=== PATIENT | male | born 1945 | race Caucasian/White ===

== ENCOUNTER 2019-10-16 13:05 | Inpatient (IN) | payer MEDICARE, MEDICAID ==
[~2019-10-16] VITALS: Ht 160 cm; Wt 63.5 kg
[2019-10-16 14:47] LABS: BASOPHILS % 0.6 % (0.0-2.0); EOSINOPHILS % 4.7 % (0.0-5.0); HEMATOCRIT. 43.2 % (42.0-52.0); HEMOGLOBIN. 14.8 g/dL (14.0-18.0); LYMPHOCYTES % 18.4 % (20.0-50.0); MEAN CORPUSCULAR HEMOGLOBIN 33.9 pg (28.0-32.0); MEAN CORPUSCULAR VOLUME 99.3 fL (80.0-94.0); MEAN PLATELET VOLUME 8.4 fl (7.4-10.4); MONOCYTES % 8.7 % (2.0-8.0); NEUTROPHILS % 67.6 % (40.0-76.0); PLATELET 186 x1000/uL (130-400); RED BLOOD CELL COUNT 4.35 mill/uL (4.7-6.1); RED CELL DISTRIBUTION WIDTH 13.2 % (11.6-14.6)
[2019-10-16 14:49] LABS: CHLORIDE 111 mEq/L (98-107)
[2019-10-16 23:15] VITALS: BP 125/72
[2019-10-16 23:22] VITALS: BP 125/72
[2019-10-16] MEDS ORDERED: MAGNESIUM/ALUMINUM HYDROXIDE/SIMETHICONE 30ML UDC PO PRN (23:45)
[2019-10-16] MEDS ORDERED: ACETAMINOPHEN 325MG TABLET PO PRN (23:45)
[2019-10-16] MEDS ORDERED: ONDANSETRON HCL 4MG/2ML INJ IV PRN (23:45)
[2019-10-16] MEDS ORDERED: HYDROCODONE/ACETAMINOPHEN 5/325MG TABLET PO PRN (23:45)
[2019-10-16] MEDS ORDERED: DOCUSATE SODIUM 100MG CAPSULE PO PRN (23:45)
[2019-10-16] MEDS ORDERED: MORPHINE SULFATE 2 MG/ML CPJ (NOT FOR IM USE) IV PRN (23:45)
[2019-10-16] MEDS ORDERED: CLONIDINE 0.1MG TABLET PO PRN (23:45)
[2019-10-17 04:00] VITALS: BP 149/72
[2019-10-17 07:52] LABS: CHLORIDE 111 mEq/L (98-107)
[2019-10-17 08:00] VITALS: BP 149/74
[2019-10-17 08:11] LABS: HDL CHOLESTEROL 45 mg/dL (40-59)
[2019-10-17 08:13] LABS: CREATINE KINASE 89 IU/L (39-308); LDL CHOLESTEROL 83 mg/dL (5-100)
[2019-10-17 08:16] LABS: BASOPHILS % 0.6 % (0.0-2.0); EOSINOPHILS % 4.8 % (0.0-5.0); HEMATOCRIT. 43.5 % (42.0-52.0); LYMPHOCYTES % 21.8 % (20.0-50.0); MEAN CORPUSCULAR VOLUME 98.7 fL (80.0-94.0); MEAN PLATELET VOLUME 8.6 fl (7.4-10.4); MONOCYTES % 9.6 % (2.0-8.0); NEUTROPHILS % 63.2 % (40.0-76.0); PLATELET 189 x1000/uL (130-400); RED BLOOD CELL COUNT 4.41 mill/uL (4.7-6.1)
[2019-10-17] MEDS ORDERED: ENOXAPARIN 40MG/0.4ML SYR SUBCUT SCH (09:00)
[2019-10-17] MEDS ORDERED: ASPIRIN 81MG EC TABLET PO SCH (09:00)
[2019-10-17] MEDS ORDERED: LOSARTAN POTASSIUM 50 MG TABLET PO SCH (09:30)
[2019-10-17 09:58] LABS: T4 FREE 0.92 ng/dL (0.76-1.46)
[2019-10-17] MEDS ORDERED: REGADENOSON 0.4 MG/5 ML IV SCH (11:15)
[2019-10-17 12:00] VITALS: BP 140/78
[2019-10-17 16:10] VITALS: BP 109/76
[2019-10-17 17:08] LABS: CREATINE KINASE 98 IU/L (39-308)
[2019-10-17 17:09] LABS: CREATINE KINASE MB FRACTION 1.1 ng/mL (0.5-3.6)
== END 2019-10-17 19:20 | disposition left against medical advice (07) | DRG 206 ==
LOC: ER 13:05 → 6WST 16:51 → ENRESERV 21:40
PROVIDERS: ADMIT Hospitalist; ATTEND Hospitalist
DX: M94.0 Chondrocostal junction syndrome [Tietze] (principal); I10 Essential (primary) hypertension; R00.1 Bradycardia, unspecified; Z87.891 Personal history of nicotine dependence; Z79.899 Other long term (current) drug therapy
CPT/HCPCS: 36415; 71045; 80053; 80061; 82550; 82553; 83036; 83880; 84439; 84443; 84484; 85025; 85379; 93005; 93306; 99285; J1650

== ENCOUNTER 2020-10-23 16:34 | Emergency (ER) | payer BC, MEDICAID ==
[~2020-10-23] VITALS: Ht 160 cm; Wt 60.0 kg
[2020-10-23 18:38] LABS: CLARITY URINE CLOUDY (CLEAR); COLOR URINE ORANGE (YELLOW); KETONES URINE NEGATIVE (NEGATIVE); LEUKOCYTE ESTERASE URINE 3+ (NEGATIVE); NITRITE URINE NEGATIVE (NEGATIVE); OCCULT BLOOD URINE 3+ (NEGATIVE); PROTEIN URINE 3+ (NEGATIVE); SPECIFIC GRAVITY URINE 1.012 (1.005-1.030); UROBILINOGEN URINE 0.2 E.U./dL (0.2-1.0)
[2020-10-23] MEDS ORDERED: CEPH250C2 PO (19:04)
[2020-10-23 20:06] VITALS: BP 135/81
== END 2020-10-23 20:08 | disposition home or self-care (01) ==
LOC: ER 16:34
DX: R33.9 Retention of urine, unspecified (principal); N30.00 Acute cystitis without hematuria; N40.0 Benign prostatic hyperplasia without lower urinary tract symptoms
CPT/HCPCS: 51702; 81003; 93005; 99284